=== PATIENT | male | born 1955 | race Caucasian/White ===

== ENCOUNTER 2017-06-11 12:04 | Emergency (ER) | payer BC ==
[~2017-06-11] VITALS: Ht 177.8 cm; Wt 83.0 kg
[2017-06-11] MEDS ORDERED: ONDANSETRON HCL INJ 2 MG/ML VIAL IV STA (13:18)
[2017-06-11] MEDS ORDERED: CLINDAMYCIN PHOS 900MG/ D5W 50 50 ML IV ONE (13:30)
[2017-06-11] MEDS ORDERED: MORPHINE SULFATE 4 MG/ML SYR IV ONE (13:30)
[2017-06-11] MEDS ORDERED: MORPHINE SULFATE 2 MG/ML SYR ONE (13:44)
[2017-06-11 13:54] LABS: BASOPHILS # (AUTO) 0.1 (0.0-0.1); BASOPHILS % 0.6 % (0.0-1.0); EOSINOPHILS # (AUTO) 0.1 (0.0-0.4); EOSINOPHILS % 0.5 % (0.0-6.0); HEMATOCRIT 46.3 % (38.2-49.6); HEMOGLOBIN 15.5 g/dL (14.0-18.0); LYMPHOCYTES # (AUTO) 1.6 (1.0-3.2); LYMPHOCYTES % 15.5 % (18.0-39.1); MEAN CORPUSCULAR HEMOGLOBIN 28.8 pg (28-32); MEAN CORPUSCULAR HGB CONC 33.5 g/dL (31-35); MEAN CORPUSCULAR VOLUME 85.9 fL (81-99); MONOCYTES # (AUTO) 0.5 (0.2-0.8); MONOCYTES % 4.9 % (4.4-11.3); NEUTROPHILS # (AUTO) 7.9 (2.1-6.9); NEUTROPHILS % 78.1 % (38.7-80.0); PLATELET COUNT 249 x10e3/uL (140-360); RED BLOOD COUNT 5.39 x10e6/uL (4.3-5.7); RED CELL DISTRIBUTION WIDTH 13.2 % (11.7-14.4)
[2017-06-11 14:18] LABS: ANION GAP 12.8 mmol/L (8-16); BLOOD UREA NITROGEN 13 mg/dL (7-26); BUN/CREATININE RATIO 14 (6-25); CALCIUM 9.8 mg/dL (8.4-10.2); CARBON DIOXIDE 27 mmol/L (22-29); CHLORIDE 100 mmol/L (98-107); CREATININE, SERUM 0.93 mg/dL (0.72-1.25); EST GLOMERULAR FILTRATION RATE > 60 ML/MIN (60-); GLUCOSE 100 mg/dL (74-118); POTASSIUM 3.8 mmol/L (3.5-5.1); SODIUM 136 mmol/L (136-145)
--- NOTE | 2017-06-11 14:21 | Diagnostic Imaging Report ---
PROCEDURE:X-RAY RIGHT FOOT, COMPLETE COMPARISON:None. INDICATIONS:RIGHT FOOT INJURY, INFECTION FINDINGS: There are no fractures, dislocations, lytic or blastic lesions. No periosteal reaction or evidence of erosion. The bones are well-mineralized. Mild soft tissue swelling of the plantar forefoot. CONCLUSION: No acute fracture or dislocation of the right foot or evidence of osseous infectious process. Dictated by: Kaveh Dunn M.D. on 06/11/2017 at 14:21 Electronically approved by: Kaveh Dunn M.D. on 06/11/2017 at 14:21
[2017-06-11 15:21] VITALS: BP 133/83
== END 2017-06-11 15:10 | disposition home or self-care (01) ==
LOC: ER 12:04
DX: S91.13 Puncture wound without foreign body of toe without damage to nail (principal); L03.031 Cellulitis of right toe; W45.0XXD Nail entering through skin, subsequent encounter; Y99.0 Civilian activity done for income or pay
CPT/HCPCS: 36415; 73630; 80048; 85025; 99283; J2270; J2405

== ENCOUNTER 2019-04-27 08:13 | Emergency (ER) | payer BC ==
[~2019-04-27] VITALS: Ht 177.8 cm; Wt 81.6 kg
--- OUTSIDE RECORDS SUMMARY | 2019-04-27 08:15 | XMS REPORT ---
Author Author [facility], [place] Address Unknown Phone Unavailable Care Team Providers Care [employer] Name Role Phone Amador VIEIRA Unavailable Unavailable Problems This patient has no known problems. Allergies, Adverse Reactions, Alerts This patient has no known allergies or adverse reactions. Medications This patient has no known medications. Results Test Description Test Time Test Comments Text Results Atomic Results Result Comments FOOT RIGHT COMPLETE [place] [id number] Patient Name: GRACIELA SALAZAR MR #: [id number] : 1955 Age/Sex: 61/M Req #: [id number] Adm Physician: Ordered by: ARIANA VIEIRA DO Report #: [id number] Location: ER Room/Bed: Procedure: [id number] DX/FOOT RIGHT COMPLETE Exam Date: 06/11/17 Exam Time: 1340 REPORT STATUS: Signed PROCEDURE: X-RAY RIGHT FOOT, COMPLETE COMPARISON: None. INDICATIONS: RIGHT FOOT INJURY, INFECTION FINDINGS: There are no fractures, dislocations, lytic or blastic lesions. No periosteal reaction or evidence of erosion. The bones are well-mineralized. Mild soft tissue swelling of the plantar forefoot. CONCLUSION: No acute fracture or dislocation of the right foot or evidence of osseous infectious process. Dictated by: Kaveh Dunn M.D. on 06/11/2017 at 14:21 Electronically approved by: Kaveh Dunn M.D. on 06/11/2017 at 14:21 Dictated By: KAVEH DUNN MD 1421 Transcribed By: FRANKY on 06/11/17 1421 COPY TO: ARIANA VIEIRA DO
[2019-04-27] MEDS ORDERED: SODIUM CHLORIDE 0.9% 1000ML 1,000 ML IV SCH ×2 (08:45→10:00)
[2019-04-27] MEDS ORDERED: ACETAMINOPHEN 325 MG TAB PO ONE (08:45)
--- NOTE | 2019-04-27 09:21 | NUR ---
Darian oakes in ED - 04/27/19 at 0939 by DONNA Pt reports significant improvement after breathing tx. RR even and unlabored.
--- NOTE | 2019-04-27 09:28 | Diagnostic Imaging Report ---
EXAMINATION: CXR 2 VIEW - [facility] INDICATION: Altered mental status, fever COMPARISON: None FINDINGS: LINES/TUBES:EKG leads overlie the chest. LUNGS:The lungs are well-inflated. No focal consolidation or pulmonary edema. PLEURA:No pleural effusion or pneumothorax. MEDIASTINUM:The cardiomediastinal silhouette appears normal in size and shape. BONES/SOFT TISSUES:No acute osseous injury. Cervical spine fusion hardware partially visualized. ABDOMEN:No free air under the diaphragm. IMPRESSION: No focal pneumonia or pulmonary edema. Signed by: Corine Hoyt MD on 04/27/2019 9:26 AM
[2019-04-27] MEDS ORDERED: OSELTAMIVIR PHOSPHATE 75 MG CAP PO ONE ×2 (10:00)
--- NOTE | 2019-04-27 10:00 | NUR ---
Pt now AAOx4. Pt able to state full name and . Pt more alert and able to do things without being redirected. Vitals stable. NAD noted at the present time. Will continue to monitor.
[2019-04-27] MEDS ORDERED: SODIUM CHLORIDE 0.9% 1000ML 1,000 ML ONE (10:01)
--- NOTE | 2019-04-27 10:01 | Diagnostic Imaging Report ---
CT BRAIN -[facility] HISTORY: Altered metal status, fall COMPARISON: None. Technique: Noncontrast axial scans were obtained from skull base to the vertex. Coronal and sagittal reconstructions obtained from the axial data. One or more of the following dose reduction techniques were used: Automated exposure control, adjustment of the mA and/or kV according to patient size, and/or utilization of iterative reconstruction technique. DISCUSSION: Scalp/Skull: Unremarkable. Brain sulci: Mildly prominent. Ventricles: Compensatory dilatation. Extra-axial spaces: No masses or fluid collections. Parenchyma: Mild bilateral deep white matter hypodensity is likely chronic microvascular ischemic change. Otherwise, no masses, hemorrhage, or large vascular territory acute infarct. Dural sinuses: No abnormal densities. Sellar/Suprasellar region: Intact. Skull base: Intact. Incidental findings: Mild scattered paranasal sinus mucosal thickening is present. IMPRESSION: 1. No acute intracranial abnormalities. 2. Mild supratentorial chronic microvascular ischemic change. Mild generalized cerebral volume loss. Signed by: Dr. Humberto Chawla M.D. on 04/27/2019 9:58 AM
--- NOTE | 2019-04-27 10:04 | Diagnostic Imaging Report ---
CT C-SPINE W/O - [facility] HISTORY: Fall COMPARISON: Concurrent head CT TECHNIQUE: CT of the cervical spine without contrast. Sagittal and coronal reformations were created. One or more of the following dose reduction techniques were used: Automated exposure control, adjustment of the mA and/or kV according to patient size, and/or utilization of iterative reconstruction technique. FINDINGS: There are ACDF changes from C4 to C7. Hardware streak artifacts obscure some details. Cervical lordosis is slightly straightened. There is no scoliosis or subluxation. No fractures, compression deformity, or destructive osseous lesions are seen. The craniocervical junction is intact. No gross spinal canal masses are seen. The paravertebral and paraspinal soft tissues are unremarkable. There are mild spondylotic changes above and below the fusion level. Mild atlantoaxial arthrosis is present as well. IMPRESSION: 1. No acute osseous abnormalities. 2. ACDF changes from C4 to C7. 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 Signed by: Dr. Humberto Chawla M.D. on 04/27/2019 10:02 AM
[2019-04-27] MEDS ORDERED: TAMIFLU75 MG PO ×2 (10:44→10:54)
[2019-04-27] MEDS ORDERED: IBUPROFEN600 MG PO (10:45)
[2019-04-27] MEDS ORDERED: ZOFRAN4 MG PO (10:46)
== END 2019-04-27 11:01 | disposition home or self-care (01) ==
LOC: FSED 08:13
DX: R50.9 Fever, unspecified (principal); R05 Cough; J11.1 Influenza due to unidentified influenza virus with other respiratory manifestations; R41.0 Disorientation, unspecified; E86.0 Dehydration
CPT/HCPCS: 70450; 71046; 72125; 80048; 80076; 85025; 85610; 87040; 87400; 99284; J7030